=== PATIENT | female | born 1960 | race Caucasian/White ===

== ENCOUNTER 2020-05-18 19:49 | Emergency (ER) | payer SELFPAY ==
[~2020-05-18] VITALS: Ht 165 cm; Wt 79.3 kg
[2020-05-18] MEDS ORDERED: LACTATED RINGERS 1,000 ML IV STA (21:41)
[2020-05-18 21:45] LABS: BASOPHILS % (AUTO) 0 % (0-10); EOSINOPHILS % (AUTO) 0 % (0-10); HEMATOCRIT 44 % (35-52); HEMOGLOBIN 14.8 g/dL (11.5-16.0); LYMPHOCYTES # (AUTO) 1.2 10^3/uL (1.0-4.0); LYMPHOCYTES % (AUTO) 26 % (12-44); MEAN CORPUSCULAR HEMOGLOBIN 30 pg (25-34); MEAN CORPUSCULAR HGB CONC 33 g/dL (32-36); MEAN CORPUSCULAR VOLUME 90 fL (80-99); MEAN PLATELET VOLUME 9.7 fL (9.0-12.2); MONOCYTES # (AUTO) 0.3 10^3/uL (0.0-1.0); MONOCYTES % (AUTO) 7 % (0-12); NEUTROPHILS % (AUTO) 67 % (42-75); PLATELET COUNT 231 10^3/uL (130-400); WHITE BLOOD COUNT 4.5 10^3/uL (4.3-11.0)
[2020-05-18] MEDS ORDERED: ACETAMINOPHEN 500 MG TAB (TYLENOL) PO ONE (21:45)
[2020-05-18] MEDS ORDERED: ONDANSETRON 4 MG/2 ML (SDV) Z0FRAN IVP ONE (21:45)
[2020-05-18 21:47] LABS: BILIRUBIN,URINE NEGATIVE (NEGATIVE); CLARITY,URINE CLEAR; COLOR,URINE YELLOW; GLUCOSE, URINE (UA) NEGATIVE (NEGATIVE); KETONES,URINE 3+ (NEGATIVE); LEUKOCYTE ESTERASE ,URINE NEGATIVE (NEGATIVE); NITRITE,URINE NEGATIVE (NEGATIVE); PH,URINE 6.5 (5-9); PROTEIN,URINE NEGATIVE (NEGATIVE)
[2020-05-18 21:54] LABS: BACTERIA,URINE NEGATIVE /HPF
[2020-05-18 22:03] LABS: ALBUMIN 4.4 GM/DL (3.2-4.5); CHLORIDE 97 MMOL/L (98-107); POTASSIUM 3.9 MMOL/L (3.6-5.0); SODIUM 135 MMOL/L (135-145)
[2020-05-18 22:04] LABS: CALCIUM 9.3 MG/DL (8.5-10.1)
[2020-05-18 22:05] LABS: GLUCOSE 112 MG/DL (70-105)
[2020-05-18 22:06] LABS: TOTAL PROTEIN 7.8 GM/DL (6.4-8.2)
[2020-05-18 22:07] LABS: BILIRUBIN,TOTAL 0.8 MG/DL (0.1-1.0); CARBON DIOXIDE 24 MMOL/L (21-32)
[2020-05-18 22:09] LABS: ALKALINE PHOSPHATASE 73 U/L (40-136); CREATININE SERUM 0.77 MG/DL (0.60-1.30); GFR ESTIMATED > 60
[2020-05-18 22:10] LABS: BUN/CREATININE RATIO 9
[2020-05-18 22:12] LABS: ALANINE AMINOTRANSFERASE 22 U/L (0-55); LIPASE 46 U/L (8-78)
--- NOTE | 2020-05-18 22:30 | ED GI ---
General Chief Complaint: Abdominal/GI Problems Stated Complaint: ABD PAIN;COVID+;FEVER Nursing Triage Note: TESTED POSITIVE FOR COVID AND FLU A ON 05/17/20. TODAY INCREASE IN ABDOMINAL PAIN, N/V, AND WEAKNESS. Sepsis Screen: Possible Severe Sepsis Risk Source of Information: Patient Exam Limitations: No Limitations History of Present Illness Date Seen by Provider: May 18, 2020 Time Seen by Provider: 21:48 Initial Comments Patient presents ER by private conveyance with chief complaint of nausea and vomiting starting today. She was diagnosed yesterday with flu a and Covid. Symptoms started on Wednesday, 6 days ago. She did not start Tamiflu. She did not get sent home with any nausea medicine. She does not qualify for bemlanivimab. Is not a smoker no dysuria kidney disease, COPD, heart disease, CHF etc. She had been treating her symptoms with Tylenol and Motrin. She has a headache which is unlike her typical migraines that started the same time. Allergies and Home Medications Allergies Coded Allergies: epinephrine (Unverified Allergy, Severe, 05/18/20) ACUTE PULMONARY EDEMA midazolam (Unverified Allergy, Severe, Anaphylaxis, 05/18/20) propofol (Unverified Allergy, Severe, 05/18/20) ACUTE PULMNARY EDEMA Sulfa (Sulfonamide Antibiotics) (Unverified Allergy, Mild, Nausea, 05/18/20) amoxicillin (Unverified Allergy, Mild, Nausea, 05/18/20) clavulanic acid (Unverified Allergy, Mild, Nausea, 05/18/20) egg (Verified Allergy, Unknown, 05/18/20) Home Medications Ondansetron 4 Mg Tab.rapdis, 4-8 MG PO Q6H PRN for NAUSEA/VOMITING Prescribed by: OTF NEGRON on 05/18/20 9428 Patient Home Medication List Home Medication List Reviewed: Yes Review of Systems Review of Systems Constitutional: chills, fever, malaise EENTM: No Blurred Vision, No Double Vision Respiratory: Denies Cough, Denies Shortness of Air Cardiovascular: Denies Chest Pain, Denies Lightheadedness Gastrointestinal: Denies Constipated, Denies Diarrhea; Nausea, Vomiting Genitourinary: Denies Burning, Denies Discharge Musculoskeletal: No back pain, No joint pain All Other Systems Reviewed Negative Unless Noted: Yes Past Rmvfumc-Hxifsd-Wpiomd Hx Patient Social History Alcohol Use: Denies Use Smoking Status: Never a Smoker Recent Infectious Disease Expo: No Past Medical History : No Physical Exam Vital Signs Vital Signs - First Documented 05/18/20 21:31 Temp 37.9 Pulse 83 Resp 22 B/P (MAP) 159/85 (109) Pulse Ox 98 O2 Delivery Room Air Capillary Refill : Less Than 3 Seconds Height/Weight/BMI Height: '" Weight: lbs. oz. kg; 29.00 BMI Method: General Appearance: WD/WN, no apparent distress HEENT: PERRL/EOMI, pharynx normal Neck: full range of motion, normal inspection Respiratory: lungs clear, normal breath sounds, no respiratory distress, no accessory muscle use Cardiovascular: normal peripheral pulses, regular rate, rhythm Peripheral Pulses: 2+ Radial Pulses (R), 2+ Radial Pulses (L) Gastrointestinal: normal bowel sounds, non tender, soft Extremities: normal range of motion, normal capillary refill Neurologic/Psychiatric: alert, normal mood/affect, oriented x 3 Skin: normal color, warm/dry Progress/Results/Core Measures Results/Orders Lab Results Laboratory Tests Test 05/18/20 21:25 Range/Units White Blood Count 4.5 4.3-11.0 10^3/uL Red Blood Count 4.92 3.80-5.11 10^6/uL Hemoglobin 14.8 11.5-16.0 g/dL Hematocrit 44 35-52 % Mean Corpuscular Volume 90 80-99 fL Mean Corpuscular Hemoglobin 30 25-34 pg Mean Corpuscular Hemoglobin Concent 33 32-36 g/dL Red Cell Distribution Width 12.8 10.0-14.5 % Platelet Count 231 130-400 10^3/uL Mean Platelet Volume 9.7 9.0-12.2 fL Immature Granulocyte % (Auto) 0 % Neutrophils (%) (Auto) 67 42-75 % Lymphocytes (%) (Auto) 26 12-44 % Monocytes (%) (Auto) 7 0-12 % Eosinophils (%) (Auto) 0 0-10 % Basophils (%) (Auto) 0 0-10 % Neutrophils # (Auto) 3.0 1.8-7.8 10^3/uL Lymphocytes # (Auto) 1.2 1.0-4.0 10^3/uL Monocytes # (Auto) 0.3 0.0-1.0 10^3/uL Eosinophils # (Auto) 0.0 0.0-0.3 10^3/uL Basophils # (Auto) 0.0 0.0-0.1 10^3/uL Immature Granulocyte # (Auto) 0.0 0.0-0.1 10^3/uL Urine Color YELLOW Urine Clarity CLEAR Urine pH 6.5 5-9 Urine Specific Van 1.010 L 1.016-1.022 Urine Protein NEGATIVE NEGATIVE Urine Glucose (UA) NEGATIVE NEGATIVE Urine Ketones 3+ H NEGATIVE Urine Nitrite NEGATIVE NEGATIVE Urine Bilirubin NEGATIVE NEGATIVE Urine Urobilinogen 0.2 < = 1.0 MG/DL Urine Leukocyte Esterase NEGATIVE NEGATIVE Urine RBC (Auto) NEGATIVE NEGATIVE Urine RBC NONE /HPF Urine WBC NONE /HPF Urine Squamous Epithelial Cells NONE /HPF Urine Crystals NONE /LPF Urine Bacteria NEGATIVE /HPF Urine Casts NONE /LPF Urine Mucus NEGATIVE /LPF Urine Culture Indicated NO Sodium Level 135 135-145 MMOL/L Potassium Level 3.9 3.6-5.0 MMOL/L Chloride Level 97 L 98-107 MMOL/L Carbon Dioxide Level 24 21-32 MMOL/L Anion Gap 14 5-14 MMOL/L Blood Urea Nitrogen 7 7-18 MG/DL Creatinine 0.77 0.60-1.30 MG/DL Estimat Glomerular Filtration Rate > 60 BUN/Creatinine Ratio 9 Glucose Level 112 H 70-105 MG/DL Calcium Level 9.3 8.5-10.1 MG/DL Corrected Calcium 9.0 8.5-10.1 MG/DL Total Bilirubin 0.8 0.1-1.0 MG/DL Aspartate Amino Transf (AST/SGOT) 31 5-34 U/L Alanine Aminotransferase (ALT/SGPT) 22 0-55 U/L Alkaline Phosphatase 73 40-136 U/L C-Reactive Protein High Sensitivity 4.83 H 0.00-0.50 MG/DL Total Protein 7.8 6.4-8.2 GM/DL Albumin 4.4 3.2-4.5 GM/DL Lipase 46 8-78 U/L My Orders Orders - OTF NEGRON Ua Culture If Indicated (05/18/20 20:33) Acetaminophen Tablet (Tylenol Tablet) (05/18/20 21:45) Ondansetron Injection (Zofran Injectio (05/18/20 21:45) Lactated Ringers (Lr 1000 Ml Iv Solution (05/18/20 21:41) Rx-Ondansetron Po (Rx-Zofran Po) (05/18/20 22:35) Medications Given in ED Current Medications Medications Dose Ordered Sig/Sarah Route Start Time Stop Time Status Last Admin Dose Admin Acetaminophen 1,000 mg ONCE ONCE PO 05/18/20 21:45 05/18/20 21:46 DC 05/18/20 22:15 1,000 MG Ondansetron HCl 8 mg ONCE ONCE IVP 05/18/20 21:45 05/18/20 21:46 DC 05/18/20 22:15 8 MG Vital Signs/I&O 05/18/20 21:31 Temp 37.9 Pulse 83 Resp 22 B/P (MAP) 159/85 (109) Pulse Ox 98 O2 Delivery Room Air Blood Pressure Mean: 109 Progress Progress Note #1: Time: 22:30 Progress Note Patient declined Toradol for her headache. Tylenol for her headache and fever. Some IV fluids as she has some ketones in her urine and her heart rate in the 90s. Aseptic vital signs otherwise. We will send her home with some nausea medicine after the fluids are done. Progress Note #2: Time: 22:52 Progress Note The patient is feeling better. When her fluids are done we will let her go home. She is unfortunately not a candidate for Bamlanivimab Diagnostic Imaging Diagonstic Imaging: Xray Plain Films/CT/US/NM/MRI: chest Comments Mild bibasilar patchy infiltrates versus atelectasis. Reviewed: Reviewed by Me Departure Impression Primary Impression: COVID-19 Additional Impressions: Influenza A Nausea and vomiting Qualified Codes: R11.2 - Nausea with vomiting, unspecified Disposition: 01 HOME, SELF-CARE Condition: Improved Departure-Patient Inst. Decision time for Depature: 22:32 Referrals: NO,LOCAL PHYSICIAN (PCP) Primary Care Physician Patient Instructions: Coronavirus Disease 2019 (COVID-19) (DC), Dehydration, Adult (DC) Add. Discharge Instructions: Nausea and vomiting is a normal part of both influenza and COVID-19. Expect to be sick for 10 to 14 days. Return to the ER promptly if you are having intractable vomiting, shortness of breath resulting in a resting oxygen saturation less than 90% on a pulse oxi meter or other worrisome symptoms. Ondansetron 1 to 2 tablets every 6 hours as necessary to control your nausea. Follow-up with your primary care doctor if having other concerns. All discharge instructions reviewed with patient and/or family. Voiced unders tanding. Scripts Ondansetron (Ondansetron Odt) 4 Mg Tab.rapdis 4-8 MG PO Q6H PRN for NAUSEA/VOMITING, #20 TAB 0 Refills Prov: OTF NEGRON 05/18/20 OTF NEGRON May 18, 2020 22:30
[2020-05-18] MEDS ORDERED: ONDA4TAB11 PO ×2 (22:34→22:57)
[2020-05-18] MEDS ORDERED: RX-ONDANSETRON 4 MG ODT (ZOFRAN) PPK #4 PO STA (22:35)
[2020-05-18 23:20] VITALS: BP 136/79
--- NOTE | 2020-05-19 06:05 | Diagnostic Imaging Report ---
Clinical indication: Patient Covid positive with shortness of air, cough and congestion. Exam: Portable chest x-ray upright view. Comparisons: None. Findings: Lungs/pleura: There is minimal left basilar atelectasis. Otherwise, lungs are clear. There is no pneumothorax. There is no pleural effusion. Mediastinum: Unremarkable. Pulmonary vasculature: Unremarkable. Heart: Unremarkable. Bones/extrathoracic soft tissue: Unremarkable. Impression: There is minimal left basilar atelectasis. There is no radiographic evidence of acute cardiopulmonary process. Dictated by: Dictated on workstation # [id number]
== END 2020-05-18 23:20 | disposition home or self-care (01) ==
LOC: ER 19:54
DX: U07.1 COVID-19 (principal); J10.1 Influenza due to other identified influenza virus with other respiratory manifestations; R11.2 Nausea with vomiting, unspecified; I10 Essential (primary) hypertension; Z88.2 Allergy status to sulfonamides; Z88.1 Allergy status to other antibiotic agents; Z88.8 Allergy status to other drugs, medicaments and biological substances
CPT/HCPCS: 36415; 71045; 80053; 81000; 83690; 85025; 86141